=== PATIENT | female | born 1960 | race African-American/Black ===

== ENCOUNTER 2024-09-18 00:24 | Emergency (ER) | payer MEDICARE, OTHER ==
[~2024-09-18] VITALS: Ht 175.3 cm; Wt 69.0 kg
[2024-09-18 00:38] VITALS: O2SAT 98
[2024-09-18] MEDS: KETOROLAC 15MG/ML VIAL IM ONE (01:44)
[2024-09-18] MEDS ORDERED: NAPR-1176 MT (02:37)
[2024-09-18] MEDS ORDERED: LIDO-53 TP (02:37)
[2024-09-18 03:25] VITALS: BP 105/65; PULSE 93; RESP 15; TEMP 37; O2SAT 100
== END 2024-09-18 03:45 | disposition home or self-care (01) ==
LOC: ER 00:24
DX: M25.562 Pain in left knee (principal); Z98.84 Bariatric surgery status; Z79.1 Long term (current) use of non-steroidal anti-inflammatories (NSAID); Z98.890 Other specified postprocedural states; W19.XXXA Unspecified fall, initial encounter; Y93.89 Activity, other specified; Y92.89 Other specified places as the place of occurrence of the external cause; Y99.8 Other external cause status
CPT/HCPCS: 99283; 29505; 73562; 96372; J1885